=== PATIENT | male | born 1975 | race Caucasian/White ===

== ENCOUNTER 2020-11-18 10:41 | Emergency (ER) | payer OTHER ==
[2020-11-18 12:30] LABS: HEMOGLOBIN 11.7 gm/dl (14.0-17.5); RED BLOOD COUNT 4.03 M/UL (4.20-5.50); WHITE BLOOD COUNT 13.4 K/UL (4.5-11.0)
[2020-11-18 13:09] LABS: BUN/CREATININE RATIO 15 (0-10)
[2020-11-18] MEDS ORDERED: K-DUR TAB 20 M20 MEQ PO (16:07)
[2020-11-18] MEDS ORDERED: MAG-OX 400 TAB400 MG PO (16:07)
[2020-11-18] MEDS ORDERED: ZOFRAN ODT 4 MG4 MG SL (16:07)
== END 2020-11-18 16:15 | disposition home or self-care (01) ==
LOC: ER1 10:41
PROVIDERS: Emergency Medicine; Physician Assistant
DX: U07.1 COVID-19 (principal); E87.6 Hypokalemia; E83.42 Hypomagnesemia; I10 Essential (primary) hypertension; F17.200 Nicotine dependence, unspecified, uncomplicated; Z88.8 Allergy status to other drugs, medicaments and biological substances
CPT/HCPCS: 71045; 80053; 80307; 81001; 83605; 83690; 83735; 85025; 87040; 87086; 99284; J7030; Q9967; U0002